=== PATIENT | male | born 1965 | race Caucasian/White ===

== ENCOUNTER 2016-03-31 08:50 | Emergency (ER) | payer BC, MEDICARE | END 2016-03-31 12:26 | disposition home or self-care (01) | LOC: ER 08:50 | DX: K59.00 Constipation, unspecified (principal); J20.9 Acute bronchitis, unspecified; E11.43 Type 2 diabetes mellitus with diabetic autonomic (poly)neuropathy; K31.84 Gastroparesis; Z79.4 Long term (current) use of insulin; I10 Essential (primary) hypertension; Z97.8 Presence of other specified devices | CPT/HCPCS: 74022 ==